=== PATIENT | male | born 1950 | race Caucasian/White ===

== ENCOUNTER → 2017-05-31 14:58 | Emergency (ER) | payer SELFPAY ==
[~2017-05-31] VITALS: Ht 177.8 cm; Wt 77.1 kg
[2017-05-31 15:27] VITALS: BP 139/69
--- NOTE | 2017-05-31 15:30 | NUR ---
PATIENT BIB EMS FROM HOME IN FULL ARREST TO BED 10 CODE BLUE INITIATED , SEE CODE SHEET FOR DETAILS DR. HARRIS AT BEDSIDE.
--- NOTE | 2017-05-31 16:04 | NUR ---
CHUTE BUILDER CALLED AT THIS TIME.
--- NOTE | 2017-05-31 16:20 | NUR ---
SPOKE TO ONE LEGASY NO FURTHER FOLLOW UP NEEDED.
[2017-05-31 18:20] VITALS: BP 139/69
--- NOTE | 2017-05-31 19:15 | NUR ---
REPORT RECEIVED FROM OMI MONIQUE
--- NOTE | 2017-05-31 19:35 | NUR ---
SPOKE WITH FAMILY. COMFORT CARES PROVIDED TO FAMILY. APPROPRIATE QUESTIONS ASKED AND ANSWERED. WAITING FOR MORTUARY TO ARRIVE.
--- NOTE | 2017-05-31 20:30 | NUR ---
MORTUARY HERE TO [address] MAGISTRATE PT. ALL PAPER WORKED SIGNED. FAMILY LEFT BEDSIDE WITH ALL QUESTIONS ANSWERED.
== END | disposition expired ==
LOC: MED 14:58
DX: I46.9 Cardiac arrest, cause unspecified (principal)
CPT/HCPCS: 92950; 99285